=== PATIENT | female | born 1970 | race Caucasian/White ===

== ENCOUNTER 2018-01-25 11:15 | Inpatient (IN) | payer OTHER ==
[~2018-01-25] VITALS: Ht 167.6 cm; Wt 58.1 kg
[2018-01-25] MEDS ORDERED: CATAFLAN PO (12:46)
[2018-02-06] MEDS ORDERED: DOCUSATE SODIU100 MG PO (09:40)
[2018-02-06] MEDS ORDERED: CLONAZEPAM1 MG PO (09:42)
[2018-02-06] MEDS ORDERED: PERCOCET 5-3251 EACH PO (09:42)
== END 2018-02-06 14:25 | disposition home or self-care (01) | DRG 454 ==
LOC: PED 02-05 04:42 → O/R 02-05 04:42 → SURH 02-05 09:45 → PED 02-05 10:51 → SURH 02-05 11:15 → PED 02-06 14:25
PROVIDERS: Orthopaedic Surgery Orthopaedic Surgery of the Spine
PROC: 0RG2071 Fusion of 2 or more Cervical Vertebral Joints with Autologous Tissue Substitute, Posterior Approach, Posterior Column, Open Approach (ICD-10-PCS; 2018-02-05)
PROC: 0RT30ZZ Resection of Cervical Vertebral Disc, Open Approach (ICD-10-PCS; 2018-02-05)
PROC: 07DS3ZZ Extraction of Vertebral Bone Marrow, Percutaneous Approach (ICD-10-PCS; 2018-02-05)
PROC: 0RG20A0 Fusion of 2 or more Cervical Vertebral Joints with Interbody Fusion Device, Anterior Approach, Anterior Column, Open Approach (ICD-10-PCS; principal; 2018-02-05 09:45)
DX: M50.021 Cervical disc disorder at C4-C5 level with myelopathy (principal); M47.12 Other spondylosis with myelopathy, cervical region